=== PATIENT | female | born 1980 | race Caucasian/White ===

== ENCOUNTER 2017-04-15 09:48 | Emergency (ER) | payer OTHER ==
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
[2017-04-15 10:06] VITALS: BP 114/80; PULSE 82; TEMP 97.6; BMI 28.9
[2017-04-15] MEDS ORDERED: IBUPROFEN 400 MG TABLET (FP) PO ONE ×2 (10:24→10:26)
== END 2017-04-15 11:38 | disposition home or self-care (01) ==
LOC: FER 09:48
DX: M54.5 Low back pain (principal); M54.10 Radiculopathy, site unspecified; V43.52XA Car driver injured in collision with other type car in traffic accident, initial encounter; Y93.89 Activity, other specified; Y92.410 Unspecified street and highway as the place of occurrence of the external cause
CPT/HCPCS: 72100-TC; 84703; 99283-25

== ENCOUNTER 2019-02-10 21:15 | Emergency (ER) | payer OTHER ==
[2019-02-10 21:23] VITALS: BP 116/73; PULSE 76; TEMP 97.6; BMI 33.3
--- NOTE | 2019-02-10 21:24 | PDOC ---
History of Present Illness - General Chief Complaint: Migraine Headache Stated Complaint: MIGRAINE Time Seen by Provider: 02/10/19 21:21 History Source: Patient Exam Limitations: No Limitations - History of Present Illness Initial Comments: This is a 38-year-old female who comes in complaining of migraine headache. Patient has a long history of migraine headaches which she is usually able to manage with Botox injections and Imitrex. Patient said she has had this migraine for several days and is not able to manage it and comes in for further evaluation and pain medication. In addition to that patient said she rarely gets vomiting with the migraines and she is vomiting this time. Patient is an otherwise is her typical migraine and is left-sided and throbbing. Patient is also complaining of some photophobia. Allergies: as per nursing notes Past Medical History: none Social history: Lives with family. No smoking. No alcohol. No illicit drugs. Surgical history: None General: No fevers or chills, no weakness, no weight loss HEENT: No change in vision. No sore throat,. No ear pain CardioVascular: no chest discomfort. No shortness of breath Respiratory:No cough, or wheezing. Gastrointestinal: no nausea, vomiting, diarrhea or constipation, No rectal bleeding Genitourinary: No dysuria, hematuria, or frequency Musculoskeletal: No joint or muscle pain or swelling Neurologic: No headache, vertigo, dizziness or loss of consciousness Psychiatric: nor depression Skin: No rashes or easy bruising Endocrine: no increased thirst or abnormal weight change Allergic: no skin or latex allergy All other systems reviewed and normal GENERAL: The patient is awake, alert, and fully oriented, in no acute distress. HEAD: Normal with no signs of trauma., EYES: Pupils equal, round and reactive to light, extraocular movements intact, sclera anicteric, conjunctiva clear. Photophobia+ EXTREMITIES:atraumatic, Normal range of motion, no edema. NEUROLOGICAL: Normal speech, normal gait., Migraine headache nonfocal exam PSYCH: Normal mood, normal affect. SKIN: Warm, Dry, normal turgor, no rashes or lesions noted. Assessment and plan: This is a 38-year-old female who comes in with migraine headache. Patient given Toradol and Reglan with improvement of her symptoms. Patient discharged home will follow-up with her neurologist. Past History - Past Medical History Allergies/Adverse Reactions: Allergies Allergy/AdvReac Type Severity Reaction Status Date / Time No Known Allergies Allergy Verified 04/15/17 09:56 Home Medications: Ambulatory Orders Naproxen [Naprosyn -] 500 mg PO BID 04/15/17 Sumatriptan Succinate [Imitrex] 25 mg PO ASDIR 04/15/17 Topiramate 25 mg PO HS PRN 04/15/17 COPD: No Other medical history: MIGRAINES - Reproductive History (#): 5 Para: 3 Spontaneous : 1 - Suicide/Smoking/Psychosocial Hx Smoking History: Never smoked Hx Alcohol Use: No Drug/Substance Use Hx: No Substance Use Type: None *Physical Exam - Vital Signs Last Vital Signs Temp Pulse Resp BP Pulse Ox 97.6 F 76 18 116/73 100 02/10/19 21:18 02/10/19 21:18 02/10/19 21:18 02/10/19 21:18 02/10/19 21:18 Moderate Sedation - Procedure Monitoring Vital Signs: Procedure Monitoring Vital Signs Temperature 97.6 F 02/10/19 21:18 Pulse Rate 76 02/10/19 21:18 Respiratory Rate 18 02/10/19 21:18 Blood Pressure 116/73 02/10/19 21:18 O2 Sat by Pulse Oximetry (%) 100 02/10/19 21:18 *DC/Admit/Observation/Transfer Diagnosis at time of Disposition: Migraine headache Qualifiers: Migraine type: unspecified Status migrainosus presence: without status migrainosus Intractability: not intractable Qualified Code(s): G43.909 - Migraine, unspecified, not intractable, without status migrainosus - Discharge Dispostion Disposition: HOME Condition at time of disposition: Stable Decision to Admit order: No - Referrals Referrals: Philip Perera [Primary Care Provider] - - Patient Instructions Additional Instructions: Continue to take all your medications as prescribed. Call your neurologist in the morning if he still have any symptoms. Return to the emergency department immediately with ANY new, persistent or worsening symptoms. Continue any medications as previously prescribed by your physician. You should follow up with your primary doctor as soon as possible regarding today's emergency department visit. . Please make sure your doctor reviews the results of your emergency evaluation. Thank you for coming to the Emergency Department today for your care. It was a pleasure to see you today. Please note that your evaluation is INCOMPLETE until you follow-up with your doctor. - Post Discharge Activity
[2019-02-10] MEDS ORDERED: METOCLOPRAMIDE HCL INJECTION 10 MG/2 ML VIAL IM ONE (22:00)
[2019-02-10] MEDS ORDERED: KETOROLAC TROMETHAMINE 60 MG/2 ML VIAL IM ONE (22:00)
[2019-02-10] MEDS ORDERED: METOCLOPRAMIDE HCL INJECTION 10 MG/2 ML VIAL ONE (22:04)
[2019-02-10] MEDS ORDERED: KETOROLAC TROMETHAMINE 60 MG/2 ML VIAL ONE (22:04)
[2019-02-10] MEDS ORDERED: SODIUM CHLORIDE 1,000 ML IV ONE (22:17)
== END 2019-02-10 22:49 | disposition home or self-care (01) ==
LOC: FER 21:15
PROC: 3E0233Z Introduction of Anti-inflammatory into Muscle, Percutaneous Approach (ICD-10-PCS; principal; 2019-02-10)
PROC: 3E023GC Introduction of Other Therapeutic Substance into Muscle, Percutaneous Approach (ICD-10-PCS; 2019-02-10)
DX: G43.909 Migraine, unspecified, not intractable, without status migrainosus (principal)
CPT/HCPCS: 99281-25

== ENCOUNTER 2019-05-28 08:54 | Emergency (ER) | payer OTHER ==
[2019-05-28 08:57] VITALS: BMI 32.4
--- NOTE | 2019-05-28 09:10 | PDOC ---
History of Present Illness - General Chief Complaint: Chest Pain Stated Complaint: CHEST PAIN Time Seen by Provider: 05/28/19 08:57 History Source: Patient Exam Limitations: No Limitations - History of Present Illness Initial Comments: 05/28/19 09:06 38 y/o female with chest pain on/off for 4 days. Patient is 8 weeks . No hx of DVT or PE. Hx only of migraines. Took Tylenol this morning. No cough. SOB or back pain. Mild pain into right side of neck. No fever or chills. No N/V/ d/c. Denies abdominal pain or bleeding. Sent from [facility] for further evaluation , told nothing was done there. Denies fall or trauma. Worse with deep breathing. Presenting Symptoms: Chest Pain Timing/Duration: reports: intermittent Severity/Quality: reports: moderate Chest Pain Radiation: reports: neck Activities at Onset: denies: exertion Past History - Past Medical History Allergies/Adverse Reactions: Allergies Allergy/AdvReac Type Severity Reaction Status Date / Time No Known Allergies Allergy Verified 05/28/19 08:55 Home Medications: Ambulatory Orders No122/Iron/Folic Acid [ Multi Tablet] 1 each PO DAILY 05/28/19 COPD: No Other medical history: MIGRIANES - Reproductive History (#): 5 Para: 3 Spontaneous : 1 - Suicide/Smoking/Psychosocial Hx Smoking History: Never smoked Hx Alcohol Use: No Drug/Substance Use Hx: No Substance Use Type: None Review of Systems - Review of Systems Able to Perform ROS?: Yes Is the patient limited Thai proficient: No Constitutional: No: Chills, Fever HEENTM: No: Throat Pain Respiratory: No: Cough, Shortness of Breath Cardiac (ROS): Yes: Chest Pain. No: Edema ABD/GI: No: Diarrhea, Nausea, Vomiting : No: Dysuria All Other Systems: Reviewed and Negative *Physical Exam - Vital Signs Last Vital Signs Temp Pulse Resp BP Pulse Ox 98.3 F 73 16 110/72 100 05/28/19 08:55 05/28/19 11:03 05/28/19 08:55 05/28/19 11:03 05/28/19 11:03 - Physical Exam General Appearance: Yes: Nourished, Appropriately Dressed, Mild Distress HEENT: positive: EOMI, SHRADDHA, Normal ENT Inspection, Normal Voice, Symmetrical, Pharynx Normal Neck: positive: Trachea midline, Normal Thyroid, Supple. negative: Tender, Rigid, Carotid bruit Respiratory/Chest: positive: Lungs Clear, Normal Breath Sounds. negative: Chest Tender, Respiratory Distress, Accessory Muscle Use Cardiovascular: positive: Regular Rhythm, Regular Rate, S1, S2. negative: Edema (no calf tenderness b/l), JVD, Murmur Vascular Pulses: Femoral (R): 4+, Femoral (L): 4+, Carotid (R): 4+, Carotid (L) : 4+, Dorsalis-Pedis (R): 4+, Doralis-Pedis (L): 4+ Gastrointestinal/Abdominal: positive: Normal Bowel Sounds, Flat, Soft. negative : Tender, Organomegaly, Pulsatile Mass Lymphatic: negative: Adenopathy, Tenderness, Other Musculoskeletal: positive: Normal Inspection. negative: CVA Tenderness Extremity: positive: Normal Capillary Refill, Normal Inspection, Normal Range of Motion. negative: Tender, Calf Tenderness Integumentary: positive: Normal Color, Dry, Warm Neurologic: positive: sliver former II-XII NML intact, Fully Oriented, Alert, Normal Mood/ Affect, Normal Response, Motor Strength 5/5 Heart Score/ECG Review - ECG Intrepretation Rhythm: Regular Rhythm Comment:: 05/28/19 09:24 at 0915 HR [address]-T wave changes noted - ST and T Early Repolarization: No Non Specific ST-T Wave changes: No - ECG Impressions Normal ECG: Yes Non-specific ST Elevation: No Comment:: 05/28/19 09:24 NSR ED Treatment Course - LABORATORY CBC & Chemistry Diagram: 05/28/19 09:20 05/28/19 09:20 - ADDITIONAL ORDERS Additional order review: Laboratory Results 05/28/19 05/28/19 05/28/19 09:20 09:20 09:20 D-Dimer Sodium 137 Potassium 3.4 L Chloride 108 H Carbon Dioxide 24 Anion Gap 5 L BUN 14.0 Creatinine 0.5 L Est GFR (CKD-EPI)AfAm 142.30 Est GFR (CKD-EPI)NonAf 122.78 Random Glucose 83 Calcium 8.4 L Total Bilirubin 0.9 AST 18 ALT 17 Alkaline Phosphatase 67 Troponin I < 0.03 Total Protein 6.3 L Albumin 3.0 L Urine HCG, Qual Positive 05/28/19 09:20 D-Dimer 788 H Sodium Potassium Chloride Carbon Dioxide Anion Gap BUN Creatinine Est GFR (CKD-EPI)AfAm Est GFR (CKD-EPI)NonAf Random Glucose Calcium Total Bilirubin AST ALT Alkaline Phosphatase Troponin I Total Protein Albumin Urine HCG, Qual 05/28/19 09:20 RBC 3.99 MCV 86.3 MCHC 32.6 RDW 13.5 MPV 8.3 Neutrophils % 59.0 Lymphocytes % 31.9 Monocytes % 5.2 Eosinophils % 3.4 Basophils % 0.5 05/28/19 09:09 38 y/o female 8 weeks with chest pain for 4 days will order D-dimer adn cardiac work up Patient is in agreement with plan - RADIOLOGY Radiology Studies Ordered: Long discussion with patient, risks and benefits, elevated D-dimer may be due to or PE. Patient does not want to do spiral CT chest or V/Q scan at this time. Has appointment with INVENTORY COORDINATOR tomorrow. If worsen will return to ER AMA papers signed. Spoke with Carol Ann for initial observation. Spoke to hospitalist Dr. Cannon who does not want to admit patient. Spoke with INVENTORY COORDINATOR aircraft load controller Dr. Kenyon and she agrees to order either CT scan spiral or V/Q scan Patient wishes to sign out AMA, understands risks and benefits. *DC/Admit/Observation/Transfer Diagnosis at time of Disposition: Chest pain Qualifiers: Chest pain type: unspecified Qualified Code(s): R07.9 - Chest pain, unspecified - Discharge Dispostion Disposition: AGAINST MEDICAL ADVICE Condition at time of disposition: Stable Decision to Admit order: No - Referrals - Patient Instructions Printed Discharge Instructions: DI for Atypical Chest Pain Additional Instructions: If pain worsens or SOB go to ER Follow up with INVENTORY COORDINATOR tomorrow - Post Discharge Activity
[2019-05-28 09:25] VITALS: TEMP 98.3
[2019-05-28 09:43] LABS: BASO % 0.5 % (0-2.0); EOS % 3.4 % (0-4.5); HEMATOCRIT 34.4 % (32.4-45.2); HEMOGLOBIN 11.2 GM/dl (10.7-15.3); LYMPH % 31.9 % (8-40); MCH 28.1 pg (25.7-33.7); MCHC 32.6 g/dl (32.0-36.0); MEAN CELL VOLUME 86.3 fl (80-96); MEAN PLT VOLUME 8.3 fl (7.5-11.1); MONO % 5.2 % (3.8-10.2); PLATELET COUNT 272 K/MM3 (134-434); RBC 3.99 M/mm3 (3.60-5.2); RDW 13.5 % (11.6-15.6); WHITE BLOOD COUNT 9.4 K/mm3 (4.0-10.8)
[2019-05-28 09:53] LABS: BILIRUBIN,TOTAL 0.9 mg/dl (0.2-1); CALCIUM 8.4 mg/dl (8.5-10); CREATININE 0.5 mg/dl (0.55-1.3); POTASSIUM 3.4 mmol/L (3.5-5.1); TOT PROT 6.3 g/dl (6.4-8.2)
[2019-05-28 11:04] VITALS: BP 110/72; PULSE 73
[2019-05-28 12:33] LABS: INR 1.03 (0.83-1.09); PROTHROMBIN TIME (PATIENT) 12.1 SEC (9.7-13.0)
[2019-05-28 12:36] LABS: ACTIVATED PTT 30.1 SECONDS (25.2-36.5)
--- NOTE | 2019-05-28 16:52 | EKG ---
Test Reason : Blood Pressure : / mmHG Vent. Rate : 068 BPM Atrial Rate : 068 BPM P-R Int : 132 ms QRS Dur : 080 ms QT Int : 392 ms P-R-T Axes : 046 055 012 degrees QTc Int : 416 ms NORMAL SINUS RHYTHM NONSPECIFIC T WAVE ABNORMALITY NO PREVIOUS ECGS AVAILABLE Confirmed by ENE RICHEY MD ([id number]) on 05/28/2019 4:52:10 PM Referred By: TRINIDAD PARKINSON Confirmed By:ENE RICHEY MD
== END 2019-05-28 12:54 | disposition left against medical advice (07) ==
LOC: FER 08:54
DX: R07.9 Chest pain, unspecified (principal); O26.891 Other specified pregnancy related conditions, first trimester; Z3A.08 8 weeks gestation of pregnancy
CPT/HCPCS: 36415; 80053; 84484; 84703; 85025; 85379; 85610; 85730; 93005; 99283-25